=== PATIENT | female | born 1995 | race Caucasian/White ===

== ENCOUNTER 2016-11-13 19:00 | Emergency (ER) | payer OTHER, MEDICAID ==
--- NOTE | 2016-11-19 10:17 | ER ---
ADMIT: 11/13/2016 RM/LOC: [facility] MR#: [id number] [id number] LAUREN SARAVIA [address] [address] Emergency Room Report SEX: F AGE: 21 : 1995 DATE: 11/13/2016 HISTORY OF PRESENT ILLNESS: The patient is a 21-year-old 2, para 1, presents to the emergency room with abdominal cramping since Thursday. Apparently, she has had what she considers a stomach flu with cramping. She is 17 weeks' . She is unable to keep anything down. Her heart tones are 154. REVIEW OF SYSTEMS: Otherwise negative. She seems to be pretty anxious, has a plastic bucket and has been dry heaving. She has been treated for hyperemesis, but she thinks this is a little different, feels like she has some stomach flu. MEDICATIONS: She takes: 1. Diclegis. 2. multivitamins. ALLERGIES: NO ALLERGIES. PHYSICAL EXAMINATION: VITAL SIGNS: Blood pressure 125/87, with a heart rate of 105, respirations 22, temp is 98.3, O2 saturations 100%. ABDOMEN: She does have upper right, mid, and left upper abdomen tenderness. She has gravid uterus. She has some cramping. PELVIS: No pelvic exam conducted at this time. BACK: Normal inspection. HEENT: Oral mucosa dry. NECK: Supple. RESPIRATIONS: No distress. HEART: Tachycardic. SKIN: Good color, decreased turgor. NEURO: Oriented x4. Mood and affect anxious. LABORATORY DATA: Lipase 377, with a Rh factor of O positive. Quantitative ADMIT: 11/13/2016 RM/LOC: [facility] MR#: [id number] [id number] RANI LAUREN Sullivan [address] [place] [address] Emergency Room Report SEX: F AGE: 21 : 1995 serum is 42,134. UA shows protein 1+, ketones 4+, urobilinogen 2.0. She has IV rehydration with Phenergan IM. She has received 2 L of normal saline. CLINICAL IMPRESSION: 1. [id number] dehydration. 2. Ketonuria. 3. Nausea and vomiting. 4. 17 weeks. PLAN: She will be discharged home after she is fully rehydrated. She is to follow up with Dr. Naheed Brooks and keep hydrated. Encourage hand washing. Continue home medications. Follow up or return to ER as needed. DARIA Burden / Aba Brown MD / modl JOB #: [id number] CC: Audra Cai NP, Attending Physician Naheed Brooks MD, Family Physician
[2017-04-06] MEDS ORDERED: MOTRIN-DPS800 MG PO (14:11)
[2017-04-06] MEDS ORDERED: NIPPLECREAM TP (14:11)
[2017-04-06] MEDS ORDERED: PRENATAL VITAM1 EAC6 PO (14:11)
== END 2016-11-13 21:40 | disposition home or self-care (01) ==
LOC: ER 19:00
DX: O99.282 Endocrine, nutritional and metabolic diseases complicating pregnancy, second trimester (principal); E86.0 Dehydration; Z3A.17 17 weeks gestation of pregnancy